=== PATIENT | female | born 1970 | race Caucasian/White ===

== ENCOUNTER → 2020-12-27 06:31 | Outpatient (CLI) | payer OTHER, SELFPAY ==
[2020-12-27 19:10] LABS: SARS-CoV-2 RNA PCR Negative
== END ==
PROVIDERS: Internal Medicine Gastroenterology; PCP Family Medicine; Visit Provider Internal Medicine Gastroenterology
DX: Z01.812 Encounter for preprocedural laboratory examination (principal); Z20.822 Contact with and (suspected) exposure to COVID-19
CPT/HCPCS: C9803; U0003; U0005

== ENCOUNTER 2020-12-30 01:09 | Day surgery (SDC) | payer OTHER, SELFPAY ==
[2020-12-24 08:54] VITALS: BMI 26.5
[2020-12-30 06:20] VITALS: BP 134/93; PULSE 86; RESP 18; TEMP 36.2; O2SAT 97; BMI 25.7
[2020-12-30] MEDS: LACTATED RINGERS 1,000 ML 150 ML IV CONT (06:28)
--- NOTE | 2020-12-30 06:56 | WPDANESEPPF ---
Anes - Initial Pre Proc Eval Procedure: Operation Date: 12/30/20 07:00 Proposed Procedures p Screening Colonoscopy - El Almonte MD Date/Time: 12/30/20 06:56 Surgeon: El Almonte MD Pre Op Diagnosis: Neoplasm Screening Patient Data Age: 50 Gender: F Height: 5 ft 6 in Weight: 72.3 kg Last Vital Signs Temp 36.2 C L 12/30/20 06:20 Pulse 86 12/30/20 06:20 Resp 18 12/30/20 06:20 BP 134/93 H 12/30/20 06:20 Pulse Ox 97 12/30/20 06:20 Allergies Allergy/AdvReac Type Severity Reaction Status Date / Time No Known Allergies Allergy Verified 12/30/20 06:18 Home Medications Medication Instructions Recorded Confirmed Type ergocalciferol (vitamin D2) 1,250 50,000 unit PO WEEKLY #14 cap 08/19/20 12/24/20 Rx mcg (50,000 unit) capsule sodium,potassium,mag sulfates 17.5 See Rx Instructions PO .COMPLEX 12/16/20 12/22/20 Rx gram-3.13 gram-1.6 gram oral soln #354 ml alprazolam 0.5 mg PO .qhs PRN 12/24/20 12/24/20 History bupropion HCl 300 mg PO DAILY 12/24/20 12/24/20 History vitamin B complex 1 cap PO DAILY 12/24/20 12/24/20 History Patient hx anesthesia problems: none Family hx anesthesia problems: none PMFSH Past Medical History Medical History (Updated 12/30/20 @ 06:57 by Thomas Tran MD) Anxiety Family History Family History Father Family history of mental disorder Malignant neoplasm of prostate Mother Depression Family history of suicide Grandparent Family history of malignant neoplasm of breast Social History Social History Smoking status: Never smoker Alcohol intake: current Substance use: never Substance use type: does not use Living arrangements: with family Spiritual care concerns: No Anes - Eval Final PreProcedure Day of Procedure 12/30/20 06:56 Patient weight: normal Heart: regular rate and rhythm Lungs: clear to auscultation Airway: Mallampati scale class II Neurological: alert and oriented Last oral intake: >/= 8 hours ASA classification: II Emergent: no Anesthesia type and monitoring: general GIVS and standard monitoring Informed Consent: The patient's anesthetic plan and its attendant risks and benefits were discussed with the patient/family/POA. Questions were solicited and answers provided to the satisfaction of the patient/family/POA.
--- NOTE | 2020-12-30 07:04 | PM.HPGS ---
History of Present Illness History of Present Illness Consent: Risks, benefits, and alternatives have been discussed and questions answered. Patient agrees to proceed with procedure. Chief complaint: Neoplasm Screening Narrative: Yomaira Gaona is a 50 year old female here for first screening colonoscopy Review of Systems Constitutional: Constitutional: Denies headache(s) and Denies weakness Eyes: Eyes: Denies blurry vision ENT: Reports Normal hearing present, Denies headache(s) and Denies neck pain Cardiovascular: Cardiovascular: Denies chest pain and Denies dyspnea Respiratory: Respiratory: Denies dyspnea Gastrointestinal: Gastrointestinal: Reports no additional gastrointestinal complaints Genitourinary: Genitourinary: Denies dysuria Musculoskeletal: Musculoskeletal: Denies neck pain Integumentary/Breasts: Skin/Breast: Denies dry skin Neurologic: Reports Normal hearing present, Denies headache(s) and Denies weakness Psychiatric: Psychiatric: Denies anxiety Endocrine: Endocrine: Denies change in body appearance Hematologic/Lymphatic: Hematologic/Lymphatic: Denies easy bleeding Allergic/Immunologic: Allergic/Immunologic: Denies urticaria PMFSH Past Medical History Medical History (Updated 12/30/20 @ 07:04 by El Almonte MD) Anxiety Colon cancer screening Family History Family History Father Family history of mental disorder Malignant neoplasm of prostate Mother Depression Family history of suicide Grandparent Family history of malignant neoplasm of breast Social History Social History Smoking status: Never smoker Alcohol intake: current Substance use: never Substance use type: does not use Living arrangements: with family Spiritual care concerns: No Meds Home Medications and Allergies Home Medications Medication Instructions Recorded Confirmed Type ergocalciferol (vitamin D2) 1,250 50,000 unit PO WEEKLY #14 cap 08/19/20 12/24/20 Rx mcg (50,000 unit) capsule sodium,potassium,mag sulfates 17.5 See Rx Instructions PO .COMPLEX 12/16/20 12/22/20 Rx gram-3.13 gram-1.6 gram oral soln #354 ml alprazolam 0.5 mg PO .qhs PRN 12/24/20 12/24/20 History bupropion HCl 300 mg PO DAILY 12/24/20 12/24/20 History vitamin B complex 1 cap PO DAILY 12/24/20 12/24/20 History Allergies Allergy/AdvReac Type Severity Reaction Status Date / Time No Known Allergies Allergy Verified 12/30/20 06:18 Vital Signs Vital Signs - 24 hr 12/30/20 06:20 Temperature 97.1 F L Pulse Rate 86 Respiratory Rate 18 Blood Pressure 134/93 H Pulse Oximetry 97 Exam Const: General: comfortable and no acute distress HENMT: General nose exam: Normal nares present Eyes: General: appearance normal, both eyes and all related structures Neck: Neck: no JVD Resp: Auscultation: clear to auscultation bilaterally Cardio: Rate: regular rate Rhythm: regular rhythm GI: Inspection: non-distended GI Palp: Yes Soft to palpation Skin: General skin exam: normal color Neuro: General: gait normal Speech: normal speech Extrem: General: normal to inspection Psych: Mental Status: mental status grossly normal Assessment and Plan Assessment and plan (1) Colon cancer screening: Code(s): Z12.11 - Encounter for screening for malignant neoplasm of colon Status: Acute Assessment and Plan: proceed with colonoscopy
[2020-12-30 07:20] VITALS: BP 126/81; PULSE 86; RESP 13; O2SAT 100
[2020-12-30 07:30] VITALS: BP 120/89; PULSE 81; RESP 22; O2SAT 100
[2020-12-30 07:40] VITALS: BP 126/92; PULSE 86; RESP 20; O2SAT 100
== END 2020-12-30 07:51 | disposition home or self-care (01) ==
PROVIDERS: PCP Family Medicine; Visit Provider Internal Medicine Gastroenterology
PROC: 0DJD8ZZ Inspection of Lower Intestinal Tract, Via Natural or Artificial Opening Endoscopic (ICD-10-PCS; CPT 45378; principal; 2020-12-30 07:00)
DX: Z12.11 Encounter for screening for malignant neoplasm of colon (principal); K57.30 Diverticulosis of large intestine without perforation or abscess without bleeding; F41.9 Anxiety disorder, unspecified
CPT/HCPCS: 45378; C9803; J2704; J7120; U0003; U0005

== ENCOUNTER 2022-10-18 14:15 | Emergency (ER) | payer OTHER, SELFPAY ==
--- NOTE | 2022-10-18 14:20 | ECG_ITS ---
Measurements Intervals [place] Rate: 86 P: 65 [place]: 140 QRS: -3 QRSD: 89 T: 44 QT: 356 QTc: 427 Interpretive Statements SINUS RHYTHM POSSIBLE RIGHT VENTRICULAR CONDUCTION DELAY [RSR (QR) IN V1/V2] NONSPECIFIC T-WAVE ABNORMALITY NO PREVIOUS ECG AVAILABLE FOR COMPARISON Electronically Signed On 10-18-2022 15:17:21 OPTICAL LENS MANUFACTURING TECH by Carl Yung M.D.
[2022-10-18 14:50] VITALS: BP 137/93; PULSE 94; RESP 16; TEMP 36.4; O2SAT 100
[2022-10-18 15:34] LABS: Hematocrit 47.2 % (37.0-47.0); Hemoglobin 15.7 g/dL (12.0-15.0); Mean Corpuscular HGB Conc 33.3 g/dl (32-36); Mean Corpuscular Hemoglobin 30.3 pg (26-34); Mean Corpuscular Volume 90.9 fl (80-100); Mean Platelet Volume 9.7 fl (7.4-10.4); Platelet Count Result 313 k/mm3 (150-375); Red Blood Count 5.19 M/mm3 (4.2-5.4); Red Cell Distribution Width 12.7 % (11.5-14.5); White Blood Count 11.8 K/mm3 (4.5-10.0)
[2022-10-18 15:45] LABS: Alanine Aminotransferase 21 U/L (6-35); Albumin Level 5.1 g/dL (3.5-5.1); Alkaline Phosphatase 118 U/L (38-126); Anion Gap 9 mmol/L (8-16); Aspartate Amino Transferase 27 U/L (14-36); Bilirubin,Total 0.9 mg/dL (0.2-1.3); Blood Urea Nitrogen 13 mg/dL (7-17); Calcium 9.9 mg/dL (8.4-10.2); Carbon Dioxide 27 mmol/L (22-30); Chloride 105 mmol/L (98-107); Estimated CRCL calculation 62 ml/min; Estimated Glomerular Filt Rate > 60; Glucose 117 mg/dL (65-110); Lipase 135 U/L (23-300); Potassium 4.3 mmol/L (3.4-5.0); Sodium 141 mmol/L (137-145)
[2022-10-18 15:49] LABS: Appearance Urine Clear (Clear); Bilirubin Urine 2+ (Negative); Blood Urine Negative (Negative); Color Urine Yellow (Yellow); Glucose Urine UA Negative (Negative); Ketones Urine 1+ mg/dL (Negative); Leukocyte Esterase Ur Negative LEU/UL (Negative); Nitrate Urine Negative (Negative); Protein Urine 2+ mg/dL (Negative); Specific Grav Ur 1.025 (1.001-1.035); pH Urine 5.5 (5.0-9.0)
[2022-10-18 15:54] LABS: Bacteria Urine Trace /hpf; Mucus Urine Heavy /lpf; RBC Urine 0-2 /hpf (0-2); Squamous Epithelial Cell Urine Moderate /hpf (Few); WBC Urine 0-3 /hpf
[2022-10-18 16:04] LABS: Add Urine Microscopic? YES
[2022-10-18 16:20] LABS: Band Neutrophils Percent 11 % (0-6); Lymphocytes Absolute Manual 0.47 K/mm3 (1.1-4.5); Monocytes Absolute Manual 0.59 K/mm3 (0.1-0.90); Monocytes Percent Manual 5 % (3-9); Neutrophils Absolute Manual 10.73 K/mm3 (1.7-7.2); Neutrophils Percent Manual 80 % (46-73); Platelet Estimate Adequate (Adequate); Total Cells Counted 100
[2022-10-18 16:21] LABS: Schistocytes None Seen (NORMAL)
[2022-10-18 19:24] VITALS: BP 128/89; PULSE 78; RESP 16; O2SAT 97
--- NOTE | 2022-10-18 20:55 | ED.GENADULT ---
HPI - General Adult General Chief complaint: Nausea/Vomiting/Diarrhea Stated complaint: DIARRHEA,BLOOD IN STOOL,SOB,CP,ANXIETY Time Seen by Provider: 10/18/22 19:35 History of Present Illness HPI narrative: This is a 51-year-old female presenting ED with a chief complaint of nausea and vomiting. Patient said that she had a little bit of heartburn on Tuesday. She took some Mylanta and then had a small episode of diarrhea. She is feeling well until today when she was at work she had 2 hours of severe nausea/vomiting and diarrhea. During this time she was continuously vomiting, was pale and diaphoretic. She went to an urgent care and was sent to the emergency room from the waiting room. While she was waiting to be seen here all of her symptoms resolved. Patient states that she currently feels well. She has not have fever, chills, headaches, body aches, chest pain, difficulty breathing. She does note some abdominal discomfort been but it is nonfocal in generalized likely result of her vomiting. Patient denies urinary symptoms. She has no sick contacts. Patient notes that she ate at a Holiday green party buffet this . Related Data Home Medications Medication Instructions Recorded Confirmed vitamin B complex 1 cap PO DAILY 12/24/20 06/22/21 Allergies Allergy/AdvReac Type Severity Reaction Status Date / Time No Known Allergies Allergy Verified 06/22/21 09:48 Review of Systems Review of Systems: CONSTITUTIONAL: Denies night sweats. EYES: No eye pain ENT: Denies rhinorrhea CARDIOVASCULAR: Denies palpitations RESPIRATORY: Denies hemoptysis GASTROINTESTINAL: Denies hematemesis GENITOURINARY: Denies hematuria. SKIN: Denies rash MUSCULOSKELETAL: Denies myalgia. NEUROLOGIC: Denies weakness. PSYCHIATRIC: Denies delusions PMFSH Past Medical History Medical History Anxiety Anxiety Colon cancer screening Surgical History Surgical History H/O breast augmentation Family History Family History Father Family history of mental disorder Malignant neoplasm of prostate Mother Depression Family history of suicide Grandparent Family history of malignant neoplasm of breast Social History Social History Alcohol intake: current Substance use: never Substance use type: does not use Spiritual care concerns: No Exam Narrative: APPEARANCE: No apparent distress. Patient is pleasant and polite during the interview. Her is at bedside. Head: atraumatic. EYES: EOMI, NOSE: Atraumatic NECK: Trachea midline RESPIRATORY: No increased rate of breathing Clear to auscultation bilaterally CARDIOVASCULAR: RRR, ABDOMINAL: Non-distended, no guarding no rebound, bowel sounds present. No tenderness. MUSCULOSKELETAl: No obvious deformities NEURO: Alert. Moving 4/4 extremities SKIN:: Warm, dry. Normal color PSYCHIATRIC: Normal affect Course Vital Signs Vital signs: Vital Signs Temperature 97.6 F 10/18/22 14:50 Pulse Rate 94 10/18/22 14:50 Respiratory Rate 16 10/18/22 14:50 Blood Pressure 137/93 H 10/18/22 14:50 Pulse Oximetry 100 10/18/22 14:50 Oxygen Delivery Room Air 10/18/22 14:50 Temperature 97.6 F 10/18/22 14:50 Pulse Rate 78 10/18/22 19:24 Respiratory Rate 16 10/18/22 19:24 Blood Pressure 128/89 10/18/22 19:24 Pulse Oximetry 97 10/18/22 19:24 Oxygen Delivery Room Air 10/18/22 14:50 Medical Decision Making MDM Narrative Medical decision making narrative: This is a 51-year-old female coming to the ED for 2 hours of nausea vomiting diarrhea. Patient's symptoms have since resolved. She is currently sitting in the bed, well appearing with stable vital signs. Her laboratory studies were unremarkable. I interviewed the
== END 2022-10-18 21:12 | disposition home or self-care (01) ==
PROVIDERS: Emergency Medicine; Emergency Provider Emergency Medicine
DX: R11.2 Nausea with vomiting, unspecified (principal); R19.7 Diarrhea, unspecified
CPT/HCPCS: 36415; 80053; 81001; 83690; 85025; 93005; 99283

== ENCOUNTER 2022-12-01 10:30 | Outpatient (CLI) | payer OTHER, SELFPAY ==
[2022-12-01 18:47] LABS: Kit Draw Collected
== END 2022-12-01 10:31 | disposition home or self-care (01) ==
LOC: ANHGOSHLAB 10:32
PROVIDERS: PCP Internal Medicine; Visit Provider Clinical Nurse Specialist
DX: Z13.228 Encounter for screening for other metabolic disorders (principal); Z13.220 Encounter for screening for lipoid disorders; F41.9 Anxiety disorder, unspecified; Z78.0 Asymptomatic menopausal state; E55.9 Vitamin D deficiency, unspecified; D51.9 Vitamin B12 deficiency anemia, unspecified
CPT/HCPCS: 36415

== ENCOUNTER 2024-01-27 10:10 | Outpatient (CLI) | payer OTHER, SELFPAY ==
[2024-01-27 15:12] LABS: Basophils Percent Auto 0.7 % (0.2-1.2); Eosinophils Absolute Auto 0.2 K/mm3 (0-0.3); Eosinophils Percent Auto 3.8 % (0-4.4); Hematocrit 45.2 % (37.0-47.0); Hemoglobin 14.6 g/dL (12.0-15.0); Immature Granulocyte Absolute 0.01 K/mm3 (0.00-0.031); Immature Granulocyte Percent A 0.2 % (0-0.5); Lymphocytes Percent Auto 32.2 % (18.3-44.2); Mean Corpuscular HGB Conc 32.3 g/dl (32-36); Mean Corpuscular Hemoglobin 30.5 pg (26-34); Mean Corpuscular Volume 94.4 fl (80-100); Mean Platelet Volume 10.3 fl (7.4-10.4); Monocytes Absolute Auto 0.5 K/mm3 (0.1-0.6); Monocytes Percent Auto 8.1 % (2.6-8.5); Neutrophils Absolute Auto 3.1 K/mm3 (1.3-6.7); Platelet Count Result 303 k/mm3 (150-375); Red Blood Count 4.79 M/mm3 (4.2-5.4); Red Cell Distribution Width 13.1 % (11.5-14.5); White Blood Count 5.6 K/mm3 (4.5-10.0)
[2024-01-27 15:35] LABS: Alanine Aminotransferase 29 U/L (6-35); Albumin Level 4.6 g/dL (3.5-5.1); Alkaline Phosphatase 103 U/L (38-126); Anion Gap 5 mmol/L (8-16); Aspartate Amino Transferase 47 U/L (14-36); Bilirubin,Total 0.7 mg/dL (0.2-1.3); Blood Urea Nitrogen 17 mg/dL (7-17); Carbon Dioxide 30 mmol/L (22-30); Chloride 104 mmol/L (98-107); Cholesterol 239 mg/dL (0-200); Estimated Glomerular Filt Rate > 60; Glucose 81 mg/dL (65-110); HDL Direct 87 mg/dL; Potassium 4.5 mmol/L (3.4-5.0); Sodium 139 mmol/L (137-145); Triglycerides 79 mg/dL (<150)
[2024-01-27 15:51] LABS: LDL Cholesterol Direct 116 mg/dL
[2024-01-27 16:13] LABS: Vitamin D 25 Hydroxy 88.7 ng/mL
[2024-01-27 16:34] LABS: Vitamin B12 > 1000.0 pg/mL (239-931)
== END 2024-01-27 10:11 | disposition home or self-care (01) ==
LOC: ANHGOSHLAB 10:12
PROVIDERS: PCP Internal Medicine; Visit Provider Clinical Nurse Specialist
DX: F41.9 Anxiety disorder, unspecified (principal); E55.9 Vitamin D deficiency, unspecified; Z13.220 Encounter for screening for lipoid disorders; Z13.228 Encounter for screening for other metabolic disorders; D51.9 Vitamin B12 deficiency anemia, unspecified
CPT/HCPCS: 36415; 80053; 80061; 82306; 82607; 84443; 85025

== ENCOUNTER 2024-10-25 07:48 | Outpatient (CLI) | payer OTHER, SELFPAY ==
--- NOTE | ~2024-10-25 | MM_ITS ---
EXAMINATION: MM scrn chau implant BI w lui HISTORY: Screening mammogram TECHNIQUE: Craniocaudal and mediolateral oblique 3-D tomosynthesis images with implant displacement a nd synthetic 2-D images were generated. Craniocaudal and mediolateral oblique views of the breasts wi thout implant displacement were obtained using full field digital mammography. CAD analysis was submi tted and interpreted. COMPARISON: 05/18/2018 BREAST PARENCHYMAL COMPOSITION: Not dense: There are scattered areas of fibroglandular density. FINDINGS: There is no evidence of suspicious mass, calcification, or architectural distortion to sugg est malignancy in either breast. There has been no suspicious interval change. IMPRESSION: 1. No mammographic evidence of malignancy. 2. Recommend routine screening mammography in one year. BI-RADS Category 1: Negative Reviewed, dictated and finalized at location [] NT RUBBER
== END 2024-10-25 07:49 | disposition home or self-care (01) ==
LOC: ANHIMG 07:50
PROVIDERS: PCP Internal Medicine; Visit Provider Clinical Nurse Specialist
DX: Z12.31 Encounter for screening mammogram for malignant neoplasm of breast (principal)
CPT/HCPCS: 77063; 77067

== ENCOUNTER 2025-07-09 11:15 | Outpatient (CLI) | payer OTHER, SELFPAY ==
--- NOTE | ~2025-07-09 | US_ITS ---
ULTRASOUND ABDOMEN LIMITED (RIGHT UPPER QUADRANT) Clinical History: R74.01 - Elevation of levels of liver transaminase levels Comparison: None Technique: Right upper quadrant sonography Findings: Liver: Normal size. Normal echotexture. No intrahepatic biliary ductal dilatation. Normal hepatopedal flow main portal vein. Common Duct: Normal caliber. 2 mm. Gallbladder: No stones. No wall thickening. No pericholecystic fluid. Pancreas: Largely obscured by bowel gas. Retrohepatic IVC: Unremarkable. IMPRESSION: 1. No acute findings. Reviewed, dictated and finalized at location R. IMPRESSION: 1. No acute findings.
--- NOTE | ~2025-07-09 | US_ITS ---
EXAMINATION: US pelvic complete w TV INDICATION: GI bleeding Comparison:No prior studies for comparison. TECHNIQUE: Multiple transabdominal and endovaginal sonographic images of the pelvis performed. FINDINGS: The uterus measures 7 x 4 x 3.2 cm. The endometrial complex measures 12 mm. Endometrium contains fluid and debris. There is fluid in the cervix as well. The ovaries not visualized. There is no free fluid in the pelvis. There are no abnormal masses seen on either side. IMPRESSION: 1. Thickened endometrium containing fluid extending into the cervix. The differential diagnosis includes endometrial hyperplasia and carcinoma. Biopsy is recommended. Reviewed, dictated and finalized at location O. IMPRESSION: 1. Thickened endometrium containing fluid extending into the cervix. The differ ential diagnosis includes endometrial hyperplasia and carcinoma. Biopsy is recommended.
== END 2025-07-09 11:16 | disposition home or self-care (01) ==
PROVIDERS: PCP Internal Medicine; Visit Provider Clinical Nurse Specialist
DX: R14.0 Abdominal distension (gaseous) (principal); Z78.0 Asymptomatic menopausal state; N95.0 Postmenopausal bleeding; R74.01 Elevation of levels of liver transaminase levels
CPT/HCPCS: 76705; 76830; 76856

== ENCOUNTER 2025-09-17 14:10 | Outpatient (CLI) | payer OTHER, SELFPAY ==
--- OUTSIDE RECORDS SUMMARY | 2025-09-17 14:14 | XMS_ITS | Clinical Summary ---
Author Organization [facility] Address [address] [place] [address] Care Team Providers Care Title Insurance Sales Representative Name Role Phone Lex Levin DO Primary Care Provider [phone] Source Comments [facility],non-[facility] Affiliates and Associated Physician Practices is amultiple site organization consisting of ambulatory clinics and hospital sitesin [place], [place], [place] and [place]. This disclosure is being madepursuant to the Care Everywhere program and may not contain all information available regarding this patient. Last updated 18.[facility] Social History Tobacco Use Types Packs/Day Years Used Date Smoking Tobacco: Never Assessed Comments No Sex and Gender Information Value Date Recorded Sex Assigned at Not on file Legal Sex Female 11:38 AM CDT Gender Identity Not on file Sexual Orientation Not on file Plan of Treatment Health Maintenance Due Date Last Done Comments COLOGUARD (AGES 45-75) - COL ON CA SCREENING 1969 COLON MONITORING 1969 COLONOSCOPY - COLON CA SCREENING 1969 CT COLONOGRAPHY - COLON CA SCREENING 1969 Colorectal Cancer Screening 1969 FIT - COLON CA SCREENING 1969 FLEX SIG - COLON CA SCREENING 1969 LIPID TESTING 1969 HIV SCREENING 1984 HEPATITIS C SCREENING 11/07/1987 DTAP/TDAP/TD VACCINES (1 - Tdap) 1988 HEPATITIS B VACCINE (1 of 3 - 19+ 3-dose series) 1988 PAP SMEAR 1990 PNEUMOCOCCAL VACCINE 50+ (1 of 1 - PCV) 2019 ZOSTER VACCINE (1 of 2) 2019 DEPRESSION SCREENING 11/07/2024 MAMMOGRAM 04/11/2025 04/11/2023 COVID-19 VACCINE (2023-2 5 season) 2025 INFLUENZA VACCINE (#1) 2025 HIB VACCINE Aged Out No longer eligi ble based on patient's age to complete this topic HPV VACCINE Aged Out No longer eligi ble based on patient's age to complete this topic MENINGOCOCCAL (Group B) VACC INE SHARED DECISION-MAKING Aged Out No longer eligibl e based on patient's age to complete this topic MENINGOCOCCAL GROUPS A/C/Y/W VACCINE Aged Out No longer eligible b ased on patient's age to complete this topic Procedures Procedure Name Priority Date/Time Associated Diagnosis Comments MAMMO BILAT IMPLANT DX W DEENA Routine 04/11/2023 1:08 PM CDT Mass of breast, unspecified laterality from Last 3 Months or Most Recently Relevant to Health Maintenance Results * MAMMO BILAT IMPLANT DX W DEENA (04/11/2023 1:08 PM CDT) Anatomical Region Laterality Modality Breast Bilateral Mammography 04/11/2023 2:54 PM CDT Impressions 04/11/2023 2:56 PM CDT : 1.No suspicious mammographic or sonographic finding in the lower outer right breast at the patient's area of concern. 2.No suspicious mammographic finding in either breast. OVERALL FINAL ASSESSMENT: BI-RADS Category 1: Negative. Annual screening mammography is recommended. Continued clinical follow-up is also recommended. > Interpreting Provider: Mickey Silva MD on 04/11/2023 2:56 PM Narrative 04/11/2023 2:56 PM CDT EXAMINATION: BILATERAL DIGITAL DIAGNOSTIC MAMMOGRAM INCLUDING CAD AND BILATERAL DIGITAL BREAST TOMOSYNTHESIS; RIGHT BREAST SONOGRAM HISTORY: 52-year-old woman presents for evaluation of a self detected palpable area within the outer right breast. She denies additional breast symptoms. COMPARISON: This is the patient's baseline breast imaging. TECHNIQUE: Full field digital mammographic views of BOTH breasts were performed, including computer aided detection (CAD) and BILATERAL digital breast tomosynthesis (DBT). Directed ultrasound evaluation of the RIGHT breast was performed by a trained turn laster and by Dr. Matt Vela. BREAST PARENCHYMAL COMPOSITION: The breasts are heterogenously dense, which may obscure small masses. MAMMOGRAM FINDINGS: There are bilateral subglandular implants in place. A triangle skin marker was placed along the outer right breast at the patient's area of concern. There is no suspicious mass, architectural distortion, or calcification in either breast. SONOGRAM FINDINGS: Targeted ultrasound evaluation of the lower inner right breast, 8:00 position 13 cm from the nipple, was performed to evaluate the patient's area of concern. There is no suspicious cystic or solid mass. There is no periimplant fluid. Physical examination performed by Dr. Matt Vela does not reveal a suspicious palpable abnormality at the patient's area of concern. Ksenia Cordero APRN-PROFESSIONAL EMPLOYER CONSULTANT MAMMO ORDERABLES Final Re sult from Last 3 Months or Most Recently Relevant to Health Maintenance Insurance [facility] Address: [address] [facility] [id number] [place] [address] Care Teams Title Insurance Sales Representative Relationship Specialty Start Date End Date Lex Levin DO PCP - General Internal Medicine 04/11/23
[2025-09-17 14:36] LABS: Hematocrit 45.9 % (37.0-47.0); Hemoglobin 15.2 g/dL (12.0-15.0); Mean Corpuscular HGB Conc 33.1 g/dl (32-36); Mean Corpuscular Hemoglobin 30.5 pg (26-34); Mean Corpuscular Volume 92.2 fl (80-100); Platelet Count Result 274 k/mm3 (150-375); Red Blood Count 4.98 M/mm3 (4.2-5.4); White Blood Count 6.7 K/mm3 (4.5-10.0)
[2025-09-17 14:57] LABS: Alanine Aminotransferase 45 U/L (6-35); Albumin Level 4.7 g/dL (3.5-5.1); Alkaline Phosphatase 109 U/L (38-126); Anion Gap 7 mmol/L (4-12); Aspartate Amino Transferase 44 U/L (14-36); Bilirubin,Total 0.6 mg/dL (0.2-1.3); Blood Urea Nitrogen 13 mg/dL (7-17); Calcium 9.2 mg/dL (8.4-10.2); Carbon Dioxide 31 mmol/L (22-30); Chloride 101 mmol/L (98-107); Estimated Glomerular Filt Rate > 60; Glucose 84 mg/dL (65-110); Potassium 4.3 mmol/L (3.4-5.0); Sodium 139 mmol/L (137-145); Total Protein 8.1 g/dL (6.3-8.2)
== END 2025-09-17 14:11 | disposition home or self-care (01) ==
LOC: ANHLAB 14:10
PROVIDERS: PCP Internal Medicine; Visit Provider Nurse Practitioner Family
DX: R74.01 Elevation of levels of liver transaminase levels (principal)
CPT/HCPCS: 36415; 80053; 85027

== ENCOUNTER 2025-09-27 13:41 | Outpatient (CLI) | payer OTHER, SELFPAY ==
--- OUTSIDE RECORDS SUMMARY | 2025-09-27 13:45 | XMS_ITS | Clinical Summary ---
Author Organization [facility] Address [address] [place] [address] Care Team Providers Care Rehabilitation Technician Name Role Phone Lex Levin DO Primary Care Provider [phone] Source Comments [facility] and Associated Physician Practices is amultiple site organization consisting of ambulatory clinics and hospital sitesin [place], [place], [place] and [place]. This disclosure is being madepursuant to the Care Everywhere program and may not contain all information available regarding this patient. Last updated 18.[facility] [employer] Social History Tobacco Use Types Packs/Day Years [...] of 3 - 19+ 3-dose series) 1988 Cervical Cancer Screening 1990 PAP SMEAR 1990 PAP with HPV 1999 PNEUMOCOCCAL VACCINE 50+ (1 of 1 - PCV) 2019 ZOSTER VACCINE (1 of 2) 2019 DEPRESSION SCREENING 11/07/2024 MAMMOGRAM 04/11/2025 04/11/2023 COVID-19 VACCINE (2024-2 6 season) 2025 INFLUENZA VACCINE (#1) 2025 HIB [...] RIGHT breast was performed by a trained computer security manager and by Dr. Matt Vela. BREAST PARENCHYMAL [...] abnormality at the patient's area of concern. us Ksenia Cordero COLLAR PACKER-PROFESSOR OF [employer] MAMMO ORDERABLES Final Re sult from Last 3 Months or Most Recently Relevant to Health Maintenance Insurance Care Teams Rehabilitation Technician Relationship Specialty Start Date End Date Lex Levin DO PCP - General Internal Medicine 04/11/23
[2025-09-27 14:37] LABS: INR 1.0; Prothrombin Time 13.3 Seconds (11.1-14.7)
[2025-09-28 07:09] LABS: GGT 19 IU/L (0-60)
[2025-10-01 07:09] LABS: ANA by IFA Rfx Titer/Pattern Negative (.)
[2025-10-02 14:08] LABS: ALT (SGPT) P5P 34 IU/L (0-40); AST (SGOT) P5P 34 IU/L (0-40); Alpha 2-Macroglobulins, Qn 156 mg/dL (110-276); Bilirubin, Total <0.2 mg/dL (0.0-1.2); Cholesterol, Total 213 mg/dL (100-199); GGT 19 IU/L (0-60); Glucose 80 mg/dL (70-99); Triglycerides 75 mg/dL (0-149)
== END 2025-09-27 13:42 | disposition home or self-care (01) ==
PROVIDERS: PCP Internal Medicine; Visit Provider Nurse Practitioner Family
DX: R74.01 Elevation of levels of liver transaminase levels (principal)
CPT/HCPCS: 36415; 82103; 82172; 82247; 82390; 82465; 82947; 82977; 83010; 83883; 84450; 84460; 84478; 85610; 86015; 86038; 86376; 86381